=== PATIENT | male | born 1985 | race Hispanic/Latino ===

== ENCOUNTER 2016-10-09 08:53 | Emergency (ER) | payer BC, MEDICAID, SELFPAY ==
[2016-10-09] MEDS ORDERED: Tetracaine HCl 0.5% Ophth Soln 2 ML Bottle ONE (09:24)
[2016-10-09] MEDS ORDERED: Fluorescein Opthalmic Strip ONE (09:24)
[2016-10-09] MEDS ORDERED: Tobramycin Sulfate 0.3% Ophth Susp 5 ml Bottle ONE (10:05)
== END 2016-10-09 10:20 | disposition home or self-care (01) ==
LOC: BURERS 08:53
DX: S05.02XA Injury of conjunctiva and corneal abrasion without foreign body, left eye, initial encounter (principal); H10.9 Unspecified conjunctivitis; F17.210 Nicotine dependence, cigarettes, uncomplicated; X58.XXXA Exposure to other specified factors, initial encounter
CPT/HCPCS: 99282

== ENCOUNTER 2016-11-02 07:09 | Emergency (ER) | payer BC ==
[2016-11-02] MEDS ORDERED: Tetracaine HCl 0.5% Ophth Soln 2 ML Bottle ONE (07:21)
[2016-11-02] MEDS ORDERED: Fluorescein Opthalmic Strip ONE (07:21)
== END 2016-11-02 07:35 | disposition home or self-care (01) ==
LOC: BURERS 07:09
DX: H10.9 Unspecified conjunctivitis (principal); F17.210 Nicotine dependence, cigarettes, uncomplicated
CPT/HCPCS: 99282